=== PATIENT | female | born 1955 | race Two or more races ===

== ENCOUNTER 2019-04-05 05:20 | Day surgery (SDC) | payer OTHER ==
[~2019-04-05 05:20] MED LIST: ALTACE10 MG PO; ASPIR 8181 MG PO; BISOPROLOL FUMAR5 MG PO; CLONAZEPAM2 M1 PO; GRALISE600 MG PO; JANUMET XR 1001 EACH PO; JANUVIA100 MG PO
== END 2019-04-05 11:05 | disposition home or self-care (01) ==
LOC: CIR.AMB 05:20 → ADM 14:30 → CIR.AMB 14:30
DX: R15.9 Full incontinence of feces (principal)
CPT/HCPCS: 64581; C1778

== ENCOUNTER 2019-04-19 05:25 | Day surgery (SDC) | payer OTHER | END 2019-04-19 10:30 | disposition home or self-care (01) | LOC: CIR.AMB 05:25 | DX: R15.9 Full incontinence of feces (principal) | CPT/HCPCS: 64590; C1767 ==